=== PATIENT | male | born 1940 | race Caucasian/White ===

== ENCOUNTER 2019-01-21 06:45 | Inpatient (IN) | payer MEDICARE, BC ==
[2019-01-21] MEDS ORDERED: TRANEXAMIC ACID 1GM/100ML(PMX) 100 ML IVPB (07:00)
[2019-01-21] MEDS ORDERED: BUPIVACAINE 0.5% (SDV) 30 ML, morphine SULFATE (PF) 8 MG, EPINEPHrine 0.3 MG, KETOROLAC... IRR (07:00)
[2019-01-21] MEDS ORDERED: CEFAZOLIN 2 GM/50 ML (PMX) 50 ML IVPB (07:00)
[2019-01-21] MEDS ORDERED: ROCURONIUM 50 MG INJ (07:58)
[2019-01-21] MEDS ORDERED: DEXAMETHASONE 4 MG/ML 5 ML INJ (07:58)
[2019-01-21] MEDS ORDERED: ROPIVACAINE 0.5 % 30 ML VIAL (07:58)
[2019-01-21] MEDS ORDERED: MIDAZOLAM 1 MG/ML 2 ML INJ (07:58)
[2019-01-21] MEDS ORDERED: CEFAZOLIN 1 GM INJ (07:58)
[2019-01-21] MEDS ORDERED: FENTAnyl 50 MCG/ML VIAL (07:58)
[2019-01-21] MEDS ORDERED: ONDANSETRON 4 MG INJ (07:58)
[2019-01-21] MEDS ORDERED: GLYCOPYRROLATE 0.4 MG INJ ×2 (07:58→11:11)
[2019-01-21] MEDS ORDERED: PROPOFOL 20 ML (07:58)
[2019-01-21] MEDS ORDERED: NEOSTIGMINE 3 MG/3 ML SYRINGE ×2 (07:58→11:11)
[2019-01-21] MEDS: GABAPENTIN 300 MG CAP PO ×2 (08:07→20:14)
[2019-01-21] MEDS: DEXAMETHASONE 1 MG TAB PO (08:07)
[2019-01-21] MEDS ORDERED: MIDAZOLAM 1 MG/ML 2 ML INJ IV (09:30)
[2019-01-21] MEDS ORDERED: IPRATROPIUM (NEB) 0.5 MG/2.5 ML AMP HHN (09:30)
[2019-01-21] MEDS ORDERED: HYDROmorphONE 1 MG/5 ML IV SYRINGE IV ×3 (09:30)
[2019-01-21] MEDS ORDERED: LABETALOL HCL 20MG INJ IV (09:30)
[2019-01-21] MEDS ORDERED: TRIMETHOBENZAMIDE 100 MG/ML VIAL IM (09:30)
[2019-01-21] MEDS ORDERED: DIPHENHYDRAMINE 50 MG INJ IV ×2 (09:30→11:30)
[2019-01-21] MEDS ORDERED: ONDANSETRON 4 MG INJ IV ×2 (09:30→11:30)
[2019-01-21] MEDS ORDERED: EPHEDrine 25 MG/5 ML SYG IV (09:30)
[2019-01-21] MEDS ORDERED: ALBUTEROL 0.083% (NEB) 2.5 MG/3 ML AMP HHN (09:30)
[2019-01-21] MEDS ORDERED: OXYCODONE/ACETAMINOPHEN (5/325) TAB PO ×2 (09:30)
[2019-01-21] MEDS ORDERED: FENTAnyl 50 MCG/ML VIAL IV ×3 (09:30)
[2019-01-21] MEDS ORDERED: MEPERIDINE 25 MG INJ IV (09:30)
[2019-01-21] MEDS ORDERED: hydrALAzine 20 MG INJ IV (09:30)
[2019-01-21] MEDS ORDERED: TRANEXAMIC ACID 1GM/100ML(PMX) 100 ML (09:52)
[2019-01-21] MEDS: POLYMYXIN/BACITRACIN 1L IRRIG (10:20)
[2019-01-21] MEDS ORDERED: CA CHLORIDE (GM) 10% 10 ML INJ (10:20)
[2019-01-21] MEDS ORDERED: THROMBIN 5000 UNIT (RECOTHROM) VIAL (10:20)
[2019-01-21] MEDS ORDERED: ZOLPIDEM 5 MG TAB PO (11:30)
[2019-01-21] MEDS ORDERED: oxyCODONE 5 MG TAB PO ×2 (11:30)
[2019-01-21] MEDS ORDERED: HYDROmorphONE 1 MG/ML SYG IV (11:30)
[2019-01-21] MEDS ORDERED: KETOROLAC 15 MG INJ IV (11:30)
[2019-01-21] MEDS ORDERED: NACL 0.9% 3 ML SYG IV (11:30)
[2019-01-21] MEDS ORDERED: MAGNESIUM HYDROXIDE 30ML CUP PO (11:30)
[2019-01-21] MEDS ORDERED: LOPERAMIDE 2 MG CAP PO (11:30)
[2019-01-21] MEDS: TRANEXAMIC ACID 1GM/100ML(PMX) 100 ML IVPB (12:34)
[2019-01-21] MEDS: ACETAMINOPHEN 500 MG TAB PO ×3 (12:35→23:12)
[2019-01-21] MEDS: CEFAZOLIN 1 GM/50 ML (PMX) 50 ML IVPB ×2 (12:35→20:14)
[2019-01-21] MEDS: DEXAMETHASONE 2 MG TAB PO ×3 (12:35→23:12)
[2019-01-21] MEDS: SENNA/DOCUSATE NA (8.6MG/50MG) TAB PO (20:15)
[2019-01-22] MEDS: CEFAZOLIN 1 GM/50 ML (PMX) 50 ML IVPB (02:31)
[2019-01-22] MEDS: DEXAMETHASONE 2 MG TAB PO (05:00)
[2019-01-22] MEDS: ACETAMINOPHEN 500 MG TAB PO (05:01)
[2019-01-22] MEDS: oxyCODONE 5 MG TAB PO (09:16)
[2019-01-22] MEDS: SENNA/DOCUSATE NA (8.6MG/50MG) TAB PO (09:16)
== END 2019-01-22 11:09 | disposition home or self-care (01) | DRG 483 ==
LOC: REC 06:45 → MS1 15:13
PROC: 0RRJ00Z Replacement of Right Shoulder Joint with Reverse Ball and Socket Synthetic Substitute, Open Approach (ICD-10-PCS; principal; 2019-01-21 09:30)
PROC: 0PB90ZZ Excision of Right Clavicle, Open Approach (ICD-10-PCS; 2019-01-21 09:30)
DX: M19.211 Secondary osteoarthritis, right shoulder (principal); M75.101 Unspecified rotator cuff tear or rupture of right shoulder, not specified as traumatic; Z72.0 Tobacco use; N40.0 Benign prostatic hyperplasia without lower urinary tract symptoms
CPT/HCPCS: 73030-RT; 86999; 88304; 88311; 97161